=== PATIENT | female | born 1960 | race Caucasian/White ===

== ENCOUNTER 2023-03-30 21:26 | Emergency (ER) | payer OTHER ==
[~2023-03-30] VITALS: Ht 160 cm; Wt 90.7 kg
--- NOTE | 2023-03-30 21:28 | NUR ---
ANNIKA ALS TO BED #11
[2023-03-30 21:34] VITALS: BP 182/99
[2023-03-30 22:05] LABS: BASOPHILS # (AUTO) 0.1 K/uL (0.00-0.22); BASOPHILS % (AUTO) 0.7 % (0.0-2.0); EOSINOPHILS # (AUTO) 0.2 K/uL (0-0.4); EOSINOPHILS % (AUTO) 1.9 % (0.0-4.0); HEMATOCRIT 39.5 % (36-48); HEMOGLOBIN 13.4 g/dL (12.0-16.0); LYMPHOCYTES # (AUTO) 2.2 K/uL (2.5-16.5); MEAN CORPUSCULAR HEMOGLOBIN 29 pg (27-31); MEAN CORPUSCULAR HGB CONC 34 g/dL (33-37); MEAN CORPUSCULAR VOLUME 84.5 fL (80-94); MONOCYTES # (AUTO) 0.6 K/uL (0.8-1.0); MONOCYTES % (AUTO) 6.2 % (1.7-9.3); NEUTROPHILS # (AUTO) 6.8 K/uL (1.8-7.7); NEUTROPHILS % (AUTO) 69.2 % (42.2-75.2); PLATELET COUNT (AUTO) 261 K/uL (140-450); RED BLOOD CELL COUNT(AUTO) 4.67 MIL/uL (4.20-5.40); RED CELL DISTRIBUTION WIDTH 13.2 % (11.6-13.7); WHITE BLOOD COUNT (AUTO) 9.8 K/uL (4.8-10.8)
[2023-03-30 22:18] LABS: ALBUMIN 3.7 g/dL (3.4-5.0); ANION GAP 13.7 (8-16); CARBON DIOXIDE 26.3 mmol/L (21-32); CREATININE 0.9 mg/dL (0.6-1.3); TOTAL BILIRUBIN 0.4 mg/dL (0.0-1.0)
--- NOTE | 2023-03-30 22:20 | NUR ---
Dr. Pereyra examining patient.
[2023-03-30] MEDS ORDERED: NACL 0.9% 1,000 ML IV ONE (22:30)
[2023-03-30 22:58] LABS: APPEARANCE,URINE CLEAR (CLEAR); BILIRUBIN,URINE NEGATIVE (NEGATIVE); BLOOD, URINE 3+ (NEGATIVE); COLOR,URINE YELLOW (YELLOW); LEUKOCYTE ESTERASE ,URINE NEGATIVE (NEGATIVE); NITRITE, URINE NEGATIVE (NEGATIVE); PH,URINE 6.5 (5.0-9.0); UGLUCOSE NEGATIVE (NEGATIVE)
--- NOTE | 2023-03-31 00:30 | NUR ---
Patient taken to radiology.
[2023-03-31 02:09] VITALS: BP 138/71
[2023-03-31] MEDS ORDERED: ACET-10509 PO (03:50)
[2023-03-31] MEDS ORDERED: CEPH-588 PO (03:50)
[2023-03-31] MEDS ORDERED: cephALEXin 500 MG CAP PO ONE (03:50)
--- NOTE | 2023-03-31 04:05 | NUR ---
Patient discharged with v/s stable. Written and verbal after care instructions given and explained. Patient alert, oriented and verbalized understanding of instructions. Ambulatory with steady gait. All questions addressed prior to discharge. ID band removed. Patient advised to follow up with PMD. Rx of Tylenol and Keflex given. Patient educated on indication of medication including possible reaction and side effects. Opportunity to ask questions provided and answered.
== END 2023-03-31 04:05 | disposition home or self-care (01) ==
LOC: MED 21:26
DX: N39.0 Urinary tract infection, site not specified (principal); R10.11 Right upper quadrant pain; R11.2 Nausea with vomiting, unspecified; I10 Essential (primary) hypertension; Z79.899 Other long term (current) drug therapy; Z85.3 Personal history of malignant neoplasm of breast; Z90.49 Acquired absence of other specified parts of digestive tract; Z98.890 Other specified postprocedural states
CPT/HCPCS: 36415; 80053; 81001; 83690; 85025; 87086; 96360; 99284; J7030

== ENCOUNTER 2024-01-09 02:30 | Inpatient (IN) | payer OTHER ==
[2024-01-09] VITALS (12 sets, daily range): BP systolic 146–167; BP diastolic 66–87; PULSE 70–89; RESP 17–20; TEMP 97–98.6; O2SAT 95–98
[~2024-01-09] VITALS: Ht 160 cm; Wt 90.7 kg
[~2024-01-09 02:30] MED LIST: ACET-10509 PO; CEPH-588 PO
[2024-01-09] MEDS: NITROGLYCERIN 2% 1 GM PKT TP ONE (03:10)
[2024-01-09] MEDS: MORPHINE SULFATE 4 MG/ML SYR IVP ONE (03:10)
[2024-01-09 03:29] LABS: BASOPHILS # (AUTO) 0.1 K/uL (0.00-0.22); BASOPHILS % (AUTO) 1.1 % (0.0-2.0); EOSINOPHILS # (AUTO) 0.2 K/uL (0-0.4); EOSINOPHILS % (AUTO) 2.7 % (0.0-4.0); HEMATOCRIT 39.1 % (36-48); HEMOGLOBIN 13.5 g/dL (12.0-16.0); LYMPHOCYTES # (AUTO) 2.8 K/uL (2.5-16.5); LYMPHOCYTES % (AUTO) 38.8 % (20.5-51.1); MEAN CORPUSCULAR HEMOGLOBIN 30 pg (27-31); MEAN CORPUSCULAR HGB CONC 35 g/dL (33-37); MEAN CORPUSCULAR VOLUME 85.8 fL (80-94); MONOCYTES # (AUTO) 0.6 K/uL (0.8-1.0); MONOCYTES % (AUTO) 8.8 % (1.7-9.3); NEUTROPHILS # (AUTO) 3.5 K/uL (1.8-7.7); NEUTROPHILS % (AUTO) 48.6 % (42.2-75.2); PLATELET COUNT (AUTO) 243 K/uL (140-450); RED BLOOD CELL COUNT(AUTO) 4.56 MIL/uL (4.20-5.40); RED CELL DISTRIBUTION WIDTH 13.5 % (11.6-13.7); WHITE BLOOD COUNT (AUTO) 7.2 K/uL (4.8-10.8)
[2024-01-09] MEDS: ASPIRIN 81 MG TAB.CHEW PO ONE (03:30)
[2024-01-09 03:48] LABS: ANION GAP 10.1 (8-16); CALCIUM 8.9 mg/dL (8.5-10.1); CARBON DIOXIDE 29.9 mmol/L (21-32); CREATININE 0.9 mg/dL (0.6-1.3)
[2024-01-09 03:57] LABS: ALANINE AMINOTRANSFERASE 30 U/L (12-78); ALBUMIN 3.6 g/dL (3.4-5.0); ALKALINE PHOSPHATASE 72 U/L (50-136); ASPARTATE AMINOTRANSFERASE 21 U/L (15-37); BILIRUBIN,DIRECT 0.1 mg/dL (0.0-0.3); TOTAL BILIRUBIN 0.4 mg/dL (0.0-1.0); TOTAL PROTEIN, SERUM 8.1 g/dL (6.4-8.2)
[2024-01-09] MEDS ORDERED: POTASSIUM CHLORIDE 10 MEQ TABER PO PRN (10:25)
[2024-01-09] MEDS ORDERED: MELATONIN 3 MG TAB PO PRN (10:25)
[2024-01-09] MEDS ORDERED: POLYETHYLENE GLYCOL 17 GM/PKT PO PRN (10:25)
[2024-01-09] MEDS ORDERED: ONDANSETRON 4 MG/2 ML VIAL IVP PRN (10:25)
[2024-01-09] MEDS ORDERED: HYDROcodone/APAP 5/325 MG 1 TAB TAB PO PRN (10:25)
[2024-01-09] MEDS ORDERED: MORPHINE SULFATE 2 MG/ML SYR IVP PRN (10:25)
[2024-01-09] MEDS ORDERED: MAG SULF 2000 MG/WATER PREMIX 50 ML IV PRN (10:25)
[2024-01-09 10:49] LABS: FREE T4 (FREE THYROXINE) 0.96 ng/dL (0.76-1.46); THYROID STIMULATING HORMONE 4.83 uIU/mL (0.34-3.74)
[2024-01-09] MEDS: ACETAMINOPHEN 325 MG TAB PO PRN (23:22)
[2024-01-09] MEDS ORDERED: hydrALAZINE 20 MG/ML VIAL IVP PRN (23:55)
[2024-01-10] VITALS: PULSE 78
[2024-01-10 04:00] VITALS: BP 148/92; PULSE 70; PULSE 78; RESP 18; TEMP 98.3; O2SAT 97
[2024-01-10 06:50] LABS: ALBUMIN 3.4 g/dL (3.4-5.0); ANION GAP 10.9 (8-16); CALCIUM 8.8 mg/dL (8.5-10.1); CREATININE 0.9 mg/dL (0.6-1.3); PHOSPHORUS 4.8 mg/dL (2.5-4.9); POTASSIUM 3.9 mmol/L (3.5-5.1); TOTAL BILIRUBIN 0.4 mg/dL (0.0-1.0); TOTAL PROTEIN, SERUM 6.6 g/dL (6.4-8.2)
[2024-01-10 07:36] LABS: BASOPHILS # (AUTO) 0.1 K/uL (0.00-0.22); EOSINOPHILS # (AUTO) 0.2 K/uL (0-0.4); EOSINOPHILS % (AUTO) 3.2 % (0.0-4.0); HEMATOCRIT 37.7 % (36-48); HEMOGLOBIN 13.1 g/dL (12.0-16.0); LYMPHOCYTES # (AUTO) 2.7 K/uL (2.5-16.5); MEAN CORPUSCULAR HEMOGLOBIN 30 pg (27-31); MEAN CORPUSCULAR HGB CONC 35 g/dL (33-37); MEAN CORPUSCULAR VOLUME 85.6 fL (80-94); MONOCYTES # (AUTO) 0.6 K/uL (0.8-1.0); NEUTROPHILS # (AUTO) 3.8 K/uL (1.8-7.7); NEUTROPHILS % (AUTO) 51.8 % (42.2-75.2); PLATELET COUNT (AUTO) 249 K/uL (140-450); RED BLOOD CELL COUNT(AUTO) 4.41 MIL/uL (4.20-5.40); RED CELL DISTRIBUTION WIDTH 13.4 % (11.6-13.7); WHITE BLOOD COUNT (AUTO) 7.4 K/uL (4.8-10.8)
[2024-01-10 08:00] VITALS: BP 146/86; PULSE 59; PULSE 62; RESP 18; TEMP 96.9; O2SAT 100
[2024-01-10] MEDS ORDERED: amLODIPine 5 MG TAB PO SCH (09:00)
[2024-01-10] MEDS ORDERED: ECOTRIN 81 MG TABEC PO SCH (09:00)
[2024-01-10] MEDS ORDERED: SPIR25TA PO (09:01)
[2024-01-10] MEDS ORDERED: LOSA-270 PO (09:01)
[2024-01-10] MEDS ORDERED: CARV6.252 PO (09:01)
[2024-01-10] MEDS ORDERED: PANT40EC56 PO (09:01)
[2024-01-10] MEDS: LOSARTAN 50 MG TAB PO SCH (10:33)
[2024-01-10] MEDS: carvediloL 6.25 MG TAB PO SCH (10:34)
[2024-01-10] MEDS: PANTOPRAZOLE 40 MG TABEC PO SCH (10:34)
[2024-01-10] MEDS: SPIRONOLACTONE 25 MG TAB PO SCH (10:35)
[2024-01-10 12:07] VITALS: BP 62/146; PULSE 86; RESP 18; TEMP 96.9
== END 2024-01-10 13:10 | disposition home or self-care (01) | DRG 305 ==
LOC: MED 02:30 → MTU 06:13 → MIC 06:13 → MTU 21:15
PROVIDERS: ADMIT Family Medicine; ATTEND Family Medicine
DX: I16.0 Hypertensive urgency (principal); R07.89 Other chest pain; G25.89 Other specified extrapyramidal and movement disorders; Z85.3 Personal history of malignant neoplasm of breast; Z79.82 Long term (current) use of aspirin; Z79.899 Other long term (current) drug therapy; Z88.8 Allergy status to other drugs, medicaments and biological substances
CPT/HCPCS: 36415; 71045; 71275; 80048; 80053; 80076; 83735; 83880; 84100; 84439; 84443; 84484; 85025; 85379; 87081; 93005; 97116; 97163-GP; 99285; J2270; Q0092; Q9967